=== PATIENT | female | born 1995 | race African-American/Black ===

== ENCOUNTER 2022-05-09 20:37 | Emergency (ER) | payer SELFPAY ==
[2022-05-09 21:36] LABS: #Basophils 0.1 10x3/uL (0.0-0.2); #Eosinphils 0.3 10x3/uL (0.0-0.5); #Monocytes 0.5 10x3/uL (0.0-1.1); %Basophils 0.9 % (0.0-2.0); %Eosinophils 3.1 % (0.0-6.0); %Lymphocytes 35.2 % (18.0-47.0); %Neutrophils 55.5 % (40.0-75.0); Hemoglobin 11.6 g/dL (12.0-15.5); Mean Corpuscular HGB CONC 34.8 g/dL (32.0-36.0); Mean Corpuscular Hemoglobin 30.2 pg (27.0-33.0); Mean Corpuscular Volume 86.7 fl (81.6-98.3); Mean Platelet Volume 9.8 fl (7.4-10.4); Platelet Count 316 10x3/uL (150-450); RBC Distribution Width 12.1 % (11.5-14.5); Red Blood Cell (RBC) Count 3.84 10x6/uL (3.90-5.03)
[2022-05-09 21:49] LABS: ALT (SGPT) 7 U/L (8-55); AST (SGOT) 12 U/L (5-34); Alkaline Phosphatase 14 U/L (40-110); Anion Gap 14 mmol/L (10-20); BUN (Urea Nitrogen) 9 mg/dL (7.0-18.7); Bilirubin, Total 0.3 mg/dL (0.2-1.2); Calc. Creatinine Clearance 0 mL/min (70-130); Calcium 9.4 mg/dL (7.8-10.44); Carbon Dioxide 21 mmol/L (22-29); Chloride 103 mmol/L (98-107); Estimated GFR 125; Globulin 2.6 g/dL (2.4-3.5); Glucose 88 mg/dL (70-105); Potassium 3.5 mmol/L (3.5-5.1); Protein, Total 6.6 g/dL (6.0-8.3); Sodium 134 mmol/L (136-145)
== END 2022-05-09 23:05 | disposition home or self-care (01) ==
LOC: CSHERS 20:37
DX: O20.0 Threatened abortion (principal); Z3A.12 12 weeks gestation of pregnancy
CPT/HCPCS: 36415; 80053; 84702; 85025; 86900; 86901

== ENCOUNTER 2022-09-09 13:45 | Observation (INO) | payer OTHER ==
[2022-09-09 14:08] VITALS: BMI 32.3
[2022-09-09] MEDS ORDERED: hydrALAZINE 20 MG/ML VIAL SLOW IVP PRN ×2 (14:42→19:20)
[2022-09-09] MEDS: Lactated Ringer's 1,000 ML IV SCH ×2 (14:54→17:04)
[2022-09-09] MEDS ORDERED: Ondansetron PF 4 MG/2 ML Vial IVP SCH (15:00)
[2022-09-09] MEDS ORDERED: Fioricet 325/50/40 mg Tablet PO SCH (15:00)
[2022-09-09 15:02] LABS: #Basophils 0.1 10x3/uL (0.0-0.2); #Eosinphils 0.2 10x3/uL (0.0-0.5); #Monocytes 0.5 10x3/uL (0.0-1.1); #Neutrophils 9.5 10x3/uL (1.5-8.4); %Basophils 0.6 % (0.0-2.0); %Eosinophils 1.5 % (0.0-6.0); %Lymphocytes 2.8 % (18.0-47.0); %Monocytes 4.9 % (0.0-10.0); %Neutrophils 86.8 % (40.0-75.0); Hemoglobin 10.9 g/dL (12.0-15.5); Mean Corpuscular HGB CONC 33.7 g/dL (32.0-36.0); Mean Corpuscular Hemoglobin 29.4 pg (27.0-33.0); Mean Corpuscular Volume 87.1 fl (81.6-98.3); Mean Platelet Volume 10.5 fl (7.4-10.4); Platelet Count 222 10x3/uL (150-450); RBC Distribution Width 13.4 % (11.5-14.5); Red Blood Cell (RBC) Count 3.71 10x6/uL (3.90-5.03)
[2022-09-09 15:21] LABS: ALT (SGPT) 54 U/L (8-55); AST (SGOT) 71 U/L (5-34); Albumin 3.4 g/dL (3.5-5.0); Alkaline Phosphatase 40 U/L (40-110); Anion Gap 12 mmol/L (10-20); BUN (Urea Nitrogen) 5 mg/dL (7.0-18.7); Bilirubin, Total 0.4 mg/dL (0.2-1.2); Calc. Creatinine Clearance 166 mL/min (70-130); Calcium 9.1 mg/dL (7.8-10.44); Carbon Dioxide 20 mmol/L (22-29); Chloride 105 mmol/L (98-107); Estimated GFR 127; Globulin 2.8 g/dL (2.4-3.5); Glucose 100 mg/dL (70-105); Potassium 3.8 mmol/L (3.5-5.1); Protein, Total 6.2 g/dL (6.0-8.3); Sodium 133 mmol/L (136-145)
[2022-09-09 16:18] LABS: Bilirubin Neg (Negative); Blood, Urine Negative (Negative); Clarity Clear (Clear); Glucose, Urine (Dipstick) Normal (Negative); Ketone, Urine 5 mg/dL (Negative); Leukocyte Negative (Negative); Nitrite Negative (Negative); Protein, Urine (Dipstick) Negative (Neg-Trace); Urobilinogen Normal mg/dL (Less than 2); pH, Urine 6.5 (5.0-9.0)
[2022-09-09 16:47] LABS: Bacteria/HPF 1+ HPF (None Seen); CAUTI Indications for Culture Pregnancy; RBC/HPF 0-3 HPF (0-3); Squamous Epithelial 0-3 HPF (0-3); Transitional Epithelial 0-3 HPF (None Seen); WBC/HPF 0-3 HPF (0-3)
[2022-09-09 16:48] LABS: Urine Culture Reflex Yes Yes
[2022-09-09] MEDS ORDERED: Promethazine HCl 25 MG/ML VIAL IM PRN (19:20)
[2022-09-09] MEDS ORDERED: Ondansetron PF 4 MG/2 ML Vial IVP PRN (19:20)
[2022-09-09] MEDS ORDERED: Acetaminophen 500 MG TAB PO PRN (19:20)
[2022-09-09] MEDS ORDERED: Lactated Ringer's 1,000 ML IV SCH ×2 (19:30→19:45)
[2022-09-09 20:07] LABS: Hemoglobin 10.2 g/dL (12.0-15.5); Mean Corpuscular HGB CONC 33.4 g/dL (32.0-36.0); Mean Corpuscular Hemoglobin 29.5 pg (27.0-33.0); Mean Corpuscular Volume 88.2 fl (81.6-98.3); Mean Platelet Volume 10.7 fl (7.4-10.4); Platelet Count 206 10x3/uL (150-450); RBC Distribution Width 13.5 % (11.5-14.5); Red Blood Cell (RBC) Count 3.46 10x6/uL (3.90-5.03); White Blood Cell (WBC) Count 8.3 10x3/uL (3.5-10.5)
[2022-09-09 20:26] LABS: ALT (SGPT) 49 U/L (8-55); AST (SGOT) 60 U/L (5-34); Albumin 3.1 g/dL (3.5-5.0); Alkaline Phosphatase 35 U/L (40-110); Anion Gap 12 mmol/L (10-20); BUN (Urea Nitrogen) 4 mg/dL (7.0-18.7); Bilirubin, Total 0.4 mg/dL (0.2-1.2); Calc. Creatinine Clearance 166 mL/min (70-130); Calcium 8.8 mg/dL (7.8-10.44); Carbon Dioxide 23 mmol/L (22-29); Chloride 106 mmol/L (98-107); Estimated GFR 127; Globulin 2.5 g/dL (2.4-3.5); Glucose 80 mg/dL (70-105); Potassium 3.8 mmol/L (3.5-5.1); Protein, Total 5.6 g/dL (6.0-8.3); Sodium 137 mmol/L (136-145)
[2022-09-09 21:13] LABS: Magnesium 1.4 mg/dL (1.6-2.6)
[2022-09-09 21:16] LABS: Troponin I Less than 0.010 ng/mL (< 0.028)
[2022-09-09] MEDS ORDERED: Magnesium 2 GM/50 ML(in water) 2 GM in Premix Bag 1 BAG IVPB SCH (23:30)
[2022-09-09] MEDS ORDERED: Vancomycin 1.5 GRAM/300 ML BAG 1.5 GM in Premix Bag 1 BAG IVPB SCH (23:30)
[2022-09-09] MEDS ORDERED: Sodium Chloride 0.9% 100 ML ONE (23:41)
[2022-09-09] MEDS ORDERED: Piperacillin/Tazobactam 3.375 GM in Sodium Chloride 0.9% 100 ML IVPB SCH (23:45)
[2022-09-10] MEDS ORDERED: Vancomycin HCl 1 GM in Sodium Chloride 0.9% 250 ML 250 ML IVPB SCH (01:00)
[2022-09-10] MEDS ORDERED: Lactated Ringer's 1,000 ML IV SCH (03:00)
[2022-09-10] MEDS ORDERED: Piperacillin/Tazobactam 3.375 GM in Sodium Chloride 0.9% 100 ML IVPB SCH (04:00)
[2022-09-10] MEDS ORDERED: NOREPINEPHRINE 8 MG/250 ML-D5W 250 ML IVPB SCH (04:30)
[2022-09-10 04:35] LABS: SARS-CoV-2 NAA Rapid Test DETECTED (NotDetected)
[2022-09-10 05:24] LABS: #Monocytes 0.7 10x3/uL (0.0-1.1); %Basophils 0.3 % (0.0-2.0); %Eosinophils 0.3 % (0.0-6.0); %Lymphocytes 8.1 % (18.0-47.0); %Monocytes 8.8 % (0.0-10.0); %Neutrophils 80.4 % (40.0-75.0); Hemoglobin 8.5 g/dL (12.0-15.5); Mean Corpuscular HGB CONC 33.1 g/dL (32.0-36.0); Mean Corpuscular Hemoglobin 29.3 pg (27.0-33.0); Mean Corpuscular Volume 88.6 fl (81.6-98.3); Mean Platelet Volume 10.7 fl (7.4-10.4); Platelet Count 173 10x3/uL (150-450); RBC Distribution Width 13.5 % (11.5-14.5); White Blood Cell (WBC) Count 7.5 10x3/uL (3.5-10.5)
[2022-09-10 05:27] LABS: Anion Gap 12 mmol/L (10-20); BUN (Urea Nitrogen) 4 mg/dL (7.0-18.7); Calc. Creatinine Clearance 155 mL/min (70-130); Calcium 8.1 mg/dL (7.8-10.44); Carbon Dioxide 20 mmol/L (22-29); Chloride 109 mmol/L (98-107); Estimated GFR 125; Glucose 119 mg/dL (70-105); Magnesium 1.9 mg/dL (1.6-2.6); Potassium 3.4 mmol/L (3.5-5.1); Sodium 138 mmol/L (136-145)
[2022-09-10] MEDS: Lactated Ringer's 1,000 ML IV SCH (05:45)
[2022-09-10] MEDS ORDERED: Potassium Chloride 20 MEQ in Premix Bag 1 BAG IVPB SCH (08:00)
[2022-09-10 09:18] VITALS: BP 103/52; TEMP 98.2
[2022-09-11 00:46] LABS: Chlam.trachomatis by PCR,Urine Not Detected (NotDetected); GC N.gonorrhoeae PCR,UrineVOID Not Detected (NotDetected)
== END 2022-09-10 07:45 | disposition short-term general hospital (02) ==
LOC: CSHLD/OP 13:45 → CSHLD 20:53 → CSHICU 09-10 01:23
PROVIDERS: ADMIT Family Medicine; ATTEND Family Medicine
DX: O99.413 Diseases of the circulatory system complicating pregnancy, third trimester (principal); R00.0 Tachycardia, unspecified; O99.891 Other specified diseases and conditions complicating pregnancy; R10.2 Pelvic and perineal pain; R19.7 Diarrhea, unspecified; O98.513 Other viral diseases complicating pregnancy, third trimester; U07.1 COVID-19; O99.353 Diseases of the nervous system complicating pregnancy, third trimester; G43.909 Migraine, unspecified, not intractable, without status migrainosus; Z3A.30 30 weeks gestation of pregnancy
CPT/HCPCS: 36415; 51701; 71045; 76819; 80048; 80053; 81001; 83605; 83735; 84439; 84443; 84484; 85025; 87040; 87086; 87491; 87591; 93005; 93010; 96360; 96361; 96374; 96375; 96376; 99285; G0378; J2405; J2543; J3370; J3475; J3490; J7050; J7120

== ENCOUNTER 2022-11-15 10:13 | Inpatient (IN) | payer OTHER ==
[~2022-11-15 10:13] MED LIST: Bupivacaine 0.25% HCL 30 ML VIAL ONE
[2022-11-15] MEDS ORDERED: Tranexamic Acid 1,000 MG/10 ML VIAL IVP PRN (19:55)
[2022-11-15] MEDS ORDERED: fentaNYL 50 mcg/mL 1 mL Vial SLOW IVP PRN (19:55)
[2022-11-15] MEDS ORDERED: Ondansetron PF 4 MG/2 ML Vial IVP PRN (19:55)
[2022-11-15] MEDS ORDERED: Diphenoxylate HCl/Atropine Tablet PO PRN (19:55)
[2022-11-15] MEDS ORDERED: Promethazine HCl 25 MG/ML VIAL IM PRN (19:55)
[2022-11-15] MEDS ORDERED: hydrALAZINE 20 MG/ML VIAL SLOW IVP PRN (19:55)
[2022-11-15] MEDS ORDERED: Acetaminophen 500 MG TAB PO PRN (19:55)
[2022-11-15] MEDS ORDERED: Lidocaine 1% (PF) 30 ML VIAL SC PRN (19:55)
[2022-11-15] MEDS ORDERED: Methylergonovine 0.2 MG/ML VIAL IM PRN (19:55)
[2022-11-15] MEDS ORDERED: Misoprostol 200 MCG TAB PR PRN (19:55)
[2022-11-15] MEDS ORDERED: Ibuprofen 800 MG TAB PO PRN (19:58)
[2022-11-15] MEDS ORDERED: HYDROcodone/Acetaminophen 5/325 mg Tablet PO PRN (19:58)
[2022-11-15] MEDS ORDERED: NS w/ Oxytocin 30 units 500 ML IV SCH ×3 (20:00→20:30)
[2022-11-15] MEDS: Lactated Ringer's 1,000 ML IV SCH (20:35)
[2022-11-15 20:46] VITALS: BMI 33.7
[2022-11-15] MEDS: Misoprostol 100 MCG TAB VAG SCH (21:00)
[2022-11-15 21:02] LABS: Mean Corpuscular HGB CONC 33.2 g/dL (32.0-36.0); Mean Corpuscular Hemoglobin 29.5 pg (27.0-33.0); Mean Corpuscular Volume 88.7 fl (81.6-98.3); Mean Platelet Volume 11.5 fl (7.4-10.4); Platelet Count 278 10x3/uL (150-450); RBC Distribution Width 13.7 % (11.5-14.5); Red Blood Cell (RBC) Count 3.73 10x6/uL (3.90-5.03); White Blood Cell (WBC) Count 9.9 10x3/uL (3.5-10.5)
[2022-11-15 21:30] LABS: Glucose 89 mg/dL (70-105)
[2022-11-15 21:35] LABS: Syphilis Antibody Nonreactive (Nonreactive); Syphilis Antibody Index 0.09 S/CO (<1.00 Non-Reactive)
[2022-11-15 21:55] LABS: HBSAg Index 0.23 S/CO (0-0.99); Hep B Surf Ag - L&D Non-Reactive S/CO (NonReactive)
[2022-11-16] MEDS ORDERED: Penicillin G Potassium 5 MILL.UNITS in Sodium Chloride 0.9% 100 ML IVPB SCH
[2022-11-16] MEDS: Misoprostol 100 MCG TAB VAG SCH ×3 (00:05→09:09)
[2022-11-16] MEDS: Penicillin G 2.5 MILL.units 2.5 MILL.UNITS in Premix Bag 1 BAG IVPB SCH ×3 (04:02→12:33)
[2022-11-16] MEDS: Lactated Ringer's 1,000 ML IV SCH ×2 (04:02→09:10)
[2022-11-16] MEDS ORDERED: fentaNYL/Ropivacaine Epidural 100 ML ONE (08:52)
[2022-11-16] MEDS ORDERED: Naloxone HCl 0.4 mg/ml Vial IVP PRN ×2 (10:43)
[2022-11-16] MEDS ORDERED: Acetaminophen 325 MG TAB PO PRN (10:43)
[2022-11-16] MEDS ORDERED: Moisturizing Cream (Eucerin) 113 GM JAR TOP PRN (10:43)
[2022-11-16] MEDS ORDERED: Lactated Ringer's 500 ML IV PRN (10:43)
[2022-11-16] MEDS ORDERED: diphenhydrAMINE 50 MG/ML VIAL IVP PRN (10:43)
[2022-11-16] MEDS ORDERED: ePHEDrine Sulfate 50 MG/10 ML VIAL SLOW IVP PRN (10:43)
[2022-11-16] MEDS ORDERED: Promethazine HCl 25 MG/ML VIAL IM PRN (10:43)
[2022-11-16] MEDS ORDERED: Ondansetron PF 4 MG/2 ML Vial IVP PRN ×2 (10:43→15:07)
[2022-11-16] MEDS ORDERED: Communication Order-Pharmacy FS SCH (10:45)
[2022-11-16] MEDS ORDERED: fentaNYL 2 mcg/Ropivacaine 0.2% Epidural 100 ML CADD EPIDURAL SCH (10:45)
[2022-11-16] MEDS ORDERED: Methylergonovine 0.2 MG/ML VIAL ONE (13:55)
[2022-11-16] MEDS: Carboprost 250 MCG/ML AMP IM PRN ×2 (14:06→14:22)
[2022-11-16] MEDS ORDERED: HYDROcodone/Acetaminophen 5/325 mg Tablet PO PRN ×2 (15:07)
[2022-11-16] MEDS ORDERED: diphenhydrAMINE 25 MG CAP PO PRN (15:07)
[2022-11-16] MEDS ORDERED: Milk Of Magnesia 30 ML UDCUP PO PRN (15:07)
[2022-11-16] MEDS ORDERED: hydrALAZINE 20 MG/ML VIAL SLOW IVP PRN (15:07)
[2022-11-16] MEDS ORDERED: Benzocaine-Menthol 82.5 ML CAN TOP PRN (15:07)
[2022-11-16] MEDS ORDERED: Lanolin Ointment 7 GM TUBE TOP PRN (15:07)
[2022-11-16] MEDS ORDERED: Preparation H Ointment 28 GM TUBE PR PRN (15:07)
[2022-11-16] MEDS ORDERED: Diphenoxylate HCl/Atropine Tablet PO PRN (15:07)
[2022-11-16] MEDS ORDERED: Bisacodyl 10 MG SUPP PR PRN (15:07)
[2022-11-16] MEDS ORDERED: Boostrix 0.5 ML (Tdap) VIAL (>/=7 yrs of age) IM ONE (15:07)
[2022-11-16] MEDS ORDERED: NS w/ Oxytocin 30 units 500 ML ONE (15:14)
[2022-11-16] MEDS ORDERED: Ibuprofen 100 MG/5 ML UDCUP PO SCH (15:15)
[2022-11-16 15:30] LABS: D-Dimer Test 2.94 mg/L FEU (0.19-0.50); PTT 26.5 sec (22.0-33.0); Prothrombin Time 11.2 sec (9.5-12.1)
[2022-11-16] MEDS: Ferrous Sulfate 325 MG TAB PO SCH (18:03)
[2022-11-16] MEDS: Docusate 100 MG CAP PO SCH (22:38)
[2022-11-16] MEDS: Ibuprofen 800 MG TAB PO SCH (22:38)
[2022-11-17 04:54] LABS: Hemoglobin 8.8 g/dL (12.0-15.5); Mean Corpuscular HGB CONC 33.1 g/dL (32.0-36.0); Mean Corpuscular Hemoglobin 29.8 pg (27.0-33.0); Mean Corpuscular Volume 90.2 fl (81.6-98.3); Mean Platelet Volume 11.6 fl (7.4-10.4); Platelet Count 220 10x3/uL (150-450); RBC Distribution Width 13.5 % (11.5-14.5); Red Blood Cell (RBC) Count 2.95 10x6/uL (3.90-5.03)
[2022-11-17] MEDS: Ibuprofen 800 MG TAB PO SCH ×3 (06:25→21:29)
[2022-11-17] MEDS: Ferrous Sulfate 325 MG TAB PO SCH ×2 (07:14→16:47)
[2022-11-17] MEDS: Prenatal Vitamin 1 TAB PO SCH (07:14)
[2022-11-17] MEDS: Docusate 100 MG CAP PO SCH ×2 (07:14→21:30)
[2022-11-18] MEDS: Ibuprofen 800 MG TAB PO SCH ×2 (05:46→13:27)
[2022-11-18 07:29] VITALS: BP 118/59; TEMP 98.8
[2022-11-18] MEDS: Prenatal Vitamin 1 TAB PO SCH (07:53)
[2022-11-18] MEDS: Docusate 100 MG CAP PO SCH (07:53)
[2022-11-18] MEDS: Ferrous Sulfate 325 MG TAB PO SCH ×2 (07:53→16:16)
== END 2022-11-18 18:30 | disposition home or self-care (01) | DRG 806 ==
LOC: CSHLD 19:50 → CSHPP 11-16 17:40
PROVIDERS: ADMIT Family Medicine; ATTEND Family Medicine
PROC: 3E0P7VZ Introduction of Hormone into Female Reproductive, Via Natural or Artificial Opening (ICD-10-PCS; 2022-11-15)
PROC: 3E033VJ Introduction of Other Hormone into Peripheral Vein, Percutaneous Approach (ICD-10-PCS; 2022-11-15)
PROC: 10E0XZZ Delivery of Products of Conception, External Approach (ICD-10-PCS; principal; 2022-11-16)
PROC: 10907ZC Drainage of Amniotic Fluid, Therapeutic from Products of Conception, Via Natural or Artificial Opening (ICD-10-PCS; 2022-11-16)
PROC: 3E03329 Introduction of Other Anti-infective into Peripheral Vein, Percutaneous Approach (ICD-10-PCS; 2022-11-16)
PROC: 0UQG7ZZ Repair Vagina, Via Natural or Artificial Opening (ICD-10-PCS; 2022-11-16)
PROC: 0UQMXZZ Repair Vulva, External Approach (ICD-10-PCS; 2022-11-16)
DX: O24.420 Gestational diabetes mellitus in childbirth, diet controlled (principal); O72.1 Other immediate postpartum hemorrhage; Z37.0 Single live birth; O98.82 Other maternal infectious and parasitic diseases complicating childbirth; Z3A.40 40 weeks gestation of pregnancy; B95.1 Streptococcus, group B, as the cause of diseases classified elsewhere; O70.0 First degree perineal laceration during delivery
CPT/HCPCS: 36415; 36416; 51702; 82947; 85027; 85049; 85300; 85362; 85379; 85384; 85610; 85730; 86780; 86850; 86900; 86901; 87340; J2001; J2210; J2540; J2590; J3490; J7120; S0020

== ENCOUNTER 2024-04-17 13:51 | Outpatient (CLI) | payer OTHER | END 2024-04-17 13:52 | disposition home or self-care (01) | LOC: CSHULT 13:51 | DX: O00.00 Abdominal pregnancy without intrauterine pregnancy (principal) | CPT/HCPCS: 76805 ==

== ENCOUNTER 2024-04-18 14:40 | Day surgery (SDC) | payer OTHER ==
[2024-04-18] MEDS ORDERED: hydrALAZINE 20 MG/ML VIAL SLOW IVP PRN (15:27)
[2024-04-18 15:37] VITALS: BMI 36.1
[2024-04-18 16:53] LABS: Hematocrit 34.8 % (34.9-44.5); Hemoglobin 11.9 g/dL (12.0-15.5); Mean Corpuscular HGB CONC 34.2 g/dL (32.0-36.0); Mean Corpuscular Hemoglobin 29.3 pg (27.0-33.0); Mean Corpuscular Volume 85.7 fL (81.6-98.3); Mean Platelet Volume 11.1 fL (7.4-10.4); Platelet Count 353 10x3/uL (150-450); RBC Distribution Width 12.6 % (11.5-14.5); Red Blood Cell (RBC) Count 4.06 10x6/uL (3.90-5.03); White Blood Cell (WBC) Count 10.8 10x3/uL (3.5-10.5)
== END 2024-04-18 17:45 | disposition short-term general hospital (02) ==
LOC: CSHLD/OP 14:40
PROVIDERS: ATTEND Family Medicine
DX: O00.90 Unspecified ectopic pregnancy without intrauterine pregnancy (principal); O99.512 Diseases of the respiratory system complicating pregnancy, second trimester; J45.909 Unspecified asthma, uncomplicated; O99.343 Other mental disorders complicating pregnancy, third trimester; F41.9 Anxiety disorder, unspecified; O09.892 Supervision of other high risk pregnancies, second trimester; O09.292 Supervision of pregnancy with other poor reproductive or obstetric history, second trimester; Z98.890 Other specified postprocedural states; Z79.899 Other long term (current) drug therapy; Z3A.20 20 weeks gestation of pregnancy
CPT/HCPCS: 85027

== ENCOUNTER 2024-05-11 03:52 | Emergency (ER) | payer OTHER | END 2024-05-11 04:41 | disposition home or self-care (01) | LOC: CSHERS 03:52 | DX: T81.41XA Infection following a procedure, superficial incisional surgical site, initial encounter (principal) | CPT/HCPCS: 99283 ==

== ENCOUNTER 2025-02-10 09:09 | Emergency (ER) | payer OTHER ==
[2025-02-10] MEDS ORDERED: Acetaminophen 500 MG TAB ONE (09:42)
== END 2025-02-10 10:26 ==
LOC: CSHERS 09:09
DX: O9A.212 Injury, poisoning and certain other consequences of external causes complicating pregnancy, second trimester (principal); S93.402A Sprain of unspecified ligament of left ankle, initial encounter; Z3A.16 16 weeks gestation of pregnancy

== ENCOUNTER 2025-03-28 18:35 | Day surgery (SDC) | payer OTHER ==
[2025-03-28] MEDS ORDERED: hydrALAZINE 20 MG/ML VIAL SLOW IVP PRN (19:10)
[2025-03-28 19:17] VITALS: BMI 36.3
[2025-03-28] MEDS: Acetaminophen 500 MG TAB PO SCH (19:28)
[2025-03-28 19:55] LABS: Glucose, Urine (Dipstick) Normal (Negative); Leukocyte Negative (Negative); Protein, Urine (Dipstick) 30 mg/dl (Neg-Trace); Specific Gravity, Urine 1.020 (1.005-1.030)
[2025-03-28 20:04] LABS: CAUTI Indications for Culture Pregnancy; WBC/HPF 0-3 HPF (0-3)
[2025-03-28 20:05] LABS: Bacteria/HPF 2+ HPF (None Seen); Mucous/LPF 4+ LPF (<2+)
[2025-03-28 20:06] LABS: Urine Culture Reflex Yes Yes
[2025-03-28 20:25] LABS: Influenza A by NAA Not Detected (NotDetected); Influenza B by NAA Not Detected (NotDetected); SARS-CoV-2 NAA Rapid Test Not Detected (NotDetected)
[2025-03-28] MEDS: Cyclobenzaprine 10 MG TAB PO SCH (21:36)
== END 2025-03-28 22:13 | disposition home or self-care (01) ==
LOC: CSHLD/OP 18:35
PROVIDERS: ATTEND Family Medicine
DX: O99.891 Other specified diseases and conditions complicating pregnancy (principal); R10.9 Unspecified abdominal pain; R51.9 Headache, unspecified; R05.9 Cough, unspecified; Z3A.22 22 weeks gestation of pregnancy; Z79.899 Other long term (current) drug therapy
CPT/HCPCS: 81001; 87086; 87636; 96360; 99284